=== PATIENT | male | born 1935 | race Caucasian/White ===

== ENCOUNTER 2018-02-21 05:15 | Emergency (ER) | payer MEDICARE ==
[~2018-02-21] VITALS: Ht 172.7 cm; Wt 81.6 kg
[~2018-02-21 05:15] MED LIST: ASPI-482 PO; CARB1TAB2 PO; CARB1TAB48 PO; ENTA200T2 PO; LISI1TAB5 PO; OMEP40CA5 PO; SIMV40TA3 PO; TAMS0.4C2 PO; TIZA4TAB PO; ZOLP5TAB5 PO
--- NOTE | 2018-02-21 05:26 | ED.ADGEN ---
Past History Past Medical History: Arthritis, CAD, GERD, High Cholesterol, Prostatitis, Renal Failure, Other Past Surgical History: No Surgical History, Other Smoking: Non-smoker Alcohol Use: None Drug Use: None Adult General Chief Complaint Chief Complaint "... I woke up ... and I had this big dump of blood...I ve never had this before.. and I feel like I ve got to go again..." HPI HPI Patient is a 83 year old male who presents with diverted from [facility], for above hx and complaints of bright red and dark rectal bleeding.. Pt. does take ASA, Meloxicam NSAIDs. Pt. had another full stool of bright red blood after arrival to ED. Pt. has hx of Parkinson, DJD, HTN, Chronic Renal Insuf. , Anemia and DM.. Pt. normally follows at [facility] for care. Pt. recently having episodes of epigastric discomfort and lower Lt. abd. pain. Nausea has been treated with Zofran. Pt. has not had any EGD or Colon scopic exams in last few years. Has noted dark stools recently. Review of Systems Review of Systems Constitutional: Denies fever or chills [] Eyes: Denies change in visual acuity, redness, or eye pain [] HENT: Denies nasal congestion or sore throat [] Respiratory: Denies cough or shortness of breath [] Cardiovascular: No additional information not addressed in HPI [] GI: Denies abdominal pain, nausea, vomiting, bloody stools or diarrhea [] : Denies dysuria or hematuria [] Musculoskeletal: Denies back pain or joint pain [] Integument: Denies rash or skin lesions [] Neurologic: Denies headache, focal weakness or sensory changes [] Endocrine: Denies polyuria or polydipsia [] All other systems were reviewed and found to be within normal limits, except as documented in this note. Family History Family History Non-contributory Current Medications Current Medications Current Medications Medications (Trade) Dose Ordered Sig/Kaylen Start Time Stop Time Status Last Admin Dose Admin Diphenhydramine HCl (Benadryl) 25 mg 1X ONCE 02/21/18 05:45 02/21/18 05:46 DC Pantoprazole Sodium (Protonix Vial) 40 mg 1X ONCE 02/21/18 05:45 02/21/18 05:46 DC 02/21/18 05:45 40 MG Sodium Chloride (Iv Sodium Chloride 0.9% 50ml) 50 ml 1X ONCE 02/21/18 05:30 02/21/18 05:31 UNV Allergies Allergies Allergies Coded Allergies Type Severity Reaction Last Updated Verified No Known Drug Allergies 09/17/14 No Physical Exam Physical Exam Constitutional: moderately acute distress, non-toxic appearance. [] HENT: Normocephalic, atraumatic, bilateral external ears normal, oropharynx moist, no oral exudates, nose normal. [] Eyes: PERRLA, EOMI, conjunctiva pale, no discharge. [] Decrease vision- Hx. legally blind Neck: Normal range of motion, no tenderness, supple, no stridor. [] Cardiovascular: Heart rate regular rhythm, no murmur [] Lungs & Thorax: Bilateral breath sounds clear to auscultation [] Stimulator on Lt. Abdomen: Bowel sounds hyperactive, soft, mild Lt. lower abd. tenderness, no masses, no pulsatile masses. [Bright red blood in diaper.) Skin: Warm, dry, no erythema, no rash. Pale. Rt. leg ulcer Back: No tenderness, no CVA tenderness. [] Extremities: No tenderness, no cyanosis, no clubbing, ROM intact, no edema. [ Arthritic changes. ] Wound / Ulcer Rt. leg ( tx as spider bite) ? Neurologic: Alert and oriented X 3, normal motor function, normal sensory function, no focal deficits noted. [] Psychologic: Affect anxious, judgement normal, mood normal. [] Current Patient Data Vital Signs Vital Signs Date Time Temp Pulse Resp B/P (MAP) Pulse Ox O2 Delivery O2 Flow Rate FiO2 02/21/18 06:38 83 16 142/84 (103) 97 Room Air 02/21/18 05:18 98.3 Lab Results Laboratory Tests Test 02/21/18 05:23 White Blood Count 6.2 x10^3/uL (4.0-11.0) Red Blood Count 4.03 x10^6/uL (4.30-5.70) L Hemoglobin 12.3 g/dL (13.0-17.5) L Hematocrit 36.8 % (39.0-53.0) L Mean Corpuscular Volume 91 fL (79-100) Mean Corpuscular Hemoglobin 31 pg (25-35) Mean Corpuscular Hemoglobin Concent 33 g/dL (31-37) Red Cell Distribution Width 13.9 % (11.5-14.5) Platelet Count 342 x10^3/uL (140-400) Neutrophils (%) (Auto) 64 % (31-73) Lymphocytes (%) (Auto) 19 % (24-48) L Monocytes (%) (Auto) 12 % (0-9) H Eosinophils (%) (Auto) 5 % (0-3) H Basophils (%) (Auto) 1 % (0-3) Neutrophils # (Auto) 4.0 x10^3uL (1.8-7.7) Lymphocytes # (Auto) 1.2 x10^3/uL (1.0-4.8) Monocytes # (Auto) 0.7 x10^3/uL (0.0-1.1) Eosinophils # (Auto) 0.3 x10^3/uL (0.0-0.7) Basophils # (Auto) 0.0 x10^3/uL (0.0-0.2) Prothrombin Time 10.9 SEC (9.4-11.4) Prothrombin Time INR 1.1 (0.9-1.1) PTT 28 SEC (23-33) Sodium Level 142 mmol/L (136-145) Potassium Level 3.5 mmol/L (3.5-5.1) Chloride Level 108 mmol/L (98-107) H Carbon Dioxide Level 31 mmol/L (21-32) Anion Gap 3 (6-14) L Blood Urea Nitrogen 21 mg/dL (8-26) Creatinine 0.9 mg/dL (0.7-1.3) Estimated GFR (Cockcroft-Gault) 80.2 Glucose Level 109 mg/dL (70-99) H Calcium Level 8.5 mg/dL (8.5-10.1) Total Bilirubin 0.5 mg/dL (0.2-1.0) Direct Bilirubin 0.1 mg/dL (0.0-0.2) Aspartate Amino Transferase (AST) 11 U/L (15-37) L Alanine Aminotransferase (ALT) 6 U/L (16-63) L Alkaline Phosphatase 66 U/L (46-116) Creatine Kinase 52 U/L (39-308) Creatine Kinase MB (Mass) 0.8 ng/mL (0.0-3.6) Creatine Kinase MB Relative Index 1.5 % (0-4) Troponin I Quantitative < 0.017 ng/mL (0-0.055) Total Protein 6.1 g/dL (6.4-8.2) L Albumin 2.7 g/dL (3.4-5.0) L Lipase 82 U/L (73-393) EKG EKG My interpretation EKG shows a sinus rhythm at 67 bpm[] Radiology/Procedures Radiology/Procedures My interpretation of chest x-ray shows some blunting a less closed phrenic angle. No free air in the diaphragm. Does have a stimulator left chest wall. Arthritic changes. Nonobstructive bowel gas pattern. Stool in the colon.[] Course & Med Decision Making Course & Med Decision Making Pertinent Labs and Imaging studies reviewed. (See chart for details) Discussed presentation, testing and tx. plan with Dr. Villarreal- will accept pt. in transfer for GI Consult. [] Final Impression Final Impression 1. Active GI bleed- appears lower- by exam and symptoms 2. GERD 3. Parkinson disease- Controlled with Stimulator 4. HTN 5. Renal Insuf. 6. Spider bite- Rt. leg 7. Recent placement of stimulator- must be turned off for EKG or MRI ec.t 8. Malnutrition- Alb. 2.7 Critical Care 60 min. Dragon Disclaimer Dragon Disclaimer This electronic medical record was generated, in whole or in part, using a voice recognition dictation system. ALAYNA ARBOLEDA MD Feb 21, 2018 05:26
[2018-02-21] MEDS ORDERED: IV NORMAL SALINE 50 ML BAG IV ONE (05:30)
[2018-02-21 05:42] LABS: BASO % 1 % (0-3); EOS # 0.3 x10^3/uL (0.0-0.7); EOS % 5 % (0-3); HEMATOCRIT 36.8 % (39.0-53.0); HEMOGLOBIN 12.3 g/dL (13.0-17.5); LYMPH # 1.2 x10^3/uL (1.0-4.8); LYMPH % 19 % (24-48); MEAN CORPUSCULAR HEMOGLOBIN 31 pg (25-35); MEAN CORPUSCULAR HGB CONC 33 g/dL (31-37); MEAN CORPUSCULAR VOLUME 91 fL (79-100); MONO # 0.7 x10^3/uL (0.0-1.1); MONO % 12 % (0-9); NEUT % 64 % (31-73); PLATELET COUNT 342 x10^3/uL (140-400); RED BLOOD COUNT 4.03 x10^6/uL (4.30-5.70); RED CELL DISTRIBUTION WIDTH 13.9 % (11.5-14.5); WHITE BLOOD COUNT 6.2 x10^3/uL (4.0-11.0)
[2018-02-21] MEDS ORDERED: IV NORMAL SALINE 1,000ML 1,000 ML IV SCH (05:45)
[2018-02-21] MEDS ORDERED: diphenhydrAMINE 50 MG/ML VIAL IVP ONE (05:45)
[2018-02-21] MEDS ORDERED: PANTOPRAZOLE IV 40 MG VIAL. IVP ONE (05:45)
[2018-02-21 06:19] LABS: ALBUMIN 2.7 g/dL (3.4-5.0); CALCIUM 8.5 mg/dL (8.5-10.1); CREATININE 0.9 mg/dL (0.7-1.3); DIRECT BILIRUBIN 0.1 mg/dL (0.0-0.2); GFR 80.2; POTASSIUM 3.5 mmol/L (3.5-5.1); TOTAL BILIRUBIN 0.5 mg/dL (0.2-1.0); TOTAL PROTEIN 6.1 g/dL (6.4-8.2)
[2018-02-21 06:38] VITALS: BP 142/84
--- NOTE | 2018-02-21 07:53 | RAD ---
Acute abdominal series with single view chest 02/21/2018 5:53 AM INDICATION: GI bleeding COMPARISON: Chest radiograph September 17, 2014 TECHNIQUE: Portable upright frontal view of the chest is provided. Upright view of the abdomen and supine views of the abdomen are provided. FINDINGS: The cardiomediastinal silhouette is within normal limits. Left chest wall battery pack is visualized with leads extending cranially. Distal tips are not visualized in this radiograph. There is trace left pleural effusion. There is bibasilar subsegmental atelectasis. No pulmonary vascular congestion or pneumothorax. There is no free intraperitoneal air. There are no dilated loops of small or large bowel. Calcific density projecting over the inferior pole the left kidney suspicious for renal calculi measuring up to 13 mm. Rounded radiopaque density projects over the right aspect of the urinary bladder measuring 1.4 cm. This may represent a phlebolith versus bladder calculus. Degenerative changes of the lumbar spine are noted with mild levoconvex curvature. Moderate to advanced multilevel degenerative disc disease is noted. No suspicious osseous abnormalities visualized. IMPRESSION: Trace left pleural effusion. Bibasilar subsegmental atelectasis, left greater than right. Nonobstructive bowel gas pattern. No free intraperitoneal air. Suspect left renal calculi measuring up to 13 mm. Suspect a phlebolith or bladder calculus on the right measuring 14 mm. Electronically signed by: Viridiana Ozuna MD (02/21/2018 7:50 AM) [facility]
== END 2018-02-21 07:08 | disposition short-term general hospital (02) ==
LOC: ER 05:15
DX: K92.2 Gastrointestinal hemorrhage, unspecified (principal); K21.9 Gastro-esophageal reflux disease without esophagitis; G20 Parkinson's disease; I10 Essential (primary) hypertension; N28.9 Disorder of kidney and ureter, unspecified; T63.301A Toxic effect of unspecified spider venom, accidental (unintentional), initial encounter; E46 Unspecified protein-calorie malnutrition; M19.90 Unspecified osteoarthritis, unspecified site; I25.10 Atherosclerotic heart disease of native coronary artery without angina pectoris; E78.00 Pure hypercholesterolemia, unspecified; Z68.27 Body mass index [BMI] 27.0-27.9, adult; Y92.89 Other specified places as the place of occurrence of the external cause
CPT/HCPCS: 36415; 74022; 80048; 80076; 82553; 83690; 84484; 85025; 85610; 85730; 86850; 86900; 86901; 96374; 99291; C9113; J7030